=== PATIENT | female | born 1985 | race Caucasian/White ===

== ENCOUNTER 2024-08-04 16:04 | Emergency (ER) | payer OTHER ==
[2024-08-04 16:55] VITALS: TEMP 98.4
--- NOTE | 2024-08-04 17:35 | ED ---
Female Urogenital HPI - General Source: patient, RN notes reviewed Mode of arrival: ambulatory Limitations: no limitations - History of Present Illness MD Complaint: vaginal bleeding Onset/Timin -: days(s) <Sameer Lozano - Last Filed: 08/04/24 17:34> <Erika Burris - Last Filed: 08/04/24 23:31> - General Chief complaint: Vaginal Bleeding Stated complaint: 5wks preg/bleeding Time Seen by Provider: 08/04/24 16:18 - History of Present Illness Initial comments: Quick note: This is a 38-year-old female presenting with vaginal bleeding/spotting today. Patient states she is currently 5 weeks with a recent miscarriage last month on 06/30/2024. Endorses associated lower abdominal cramping. Denies/vomiting, dizziness, vaginal discharge, urinary symptoms. (Sameer Lozano) 38-year-old female who is G6, P4 currently approximately 5 weeks who presents emergency department with vaginal spotting. Patient reports to having a positive test last month however she had a miscarriage on June 30. She was given RhoGAM at that time due to her negative blood type. She did follow-up with [facility] and states that her beta hCG trended back to 0 and she was told it was okay to get again. Patient reports that 2 weeks ago she had a positive test. She has had some lower abdominal cramping, breast tenderness and fatigue. Today she started having some minor spotting. Denies any urinary complaints to include dysuria, hematuria or diffic ulty voiding. No flank pain. No nausea or vomiting. No other alleviating, precipitating or modifying factors (Erika Burris) - Related Data Allergies Allergy/AdvReac Type Severity Reaction Status Date / Time latex Allergy Unknown Verified 08/04/24 16:50 Review of Systems ROS Other: All systems not noted in ROS Statement are negative. <Sameer Loazno - Last Filed: 08/04/24 17:34> ROS Other: All systems not noted in ROS Statement are negative. <Erika Burris - Last Filed: 08/04/24 23:31> ROS Statement: Those systems with pertinent positive or pertinent negative responses have been documented in the HPI. Past Medical History Past Medical History: No Reported History Past Surgical History: Section Smoking Status: Former smoker Past Alcohol Use History: None Reported, Occasional Past Drug Use History: None Reported, Marijuana <Sameer Lozano - Last Filed: 08/04/24 17:34> General Exam Limitations: no limitations <Sameer Lozano - Last Filed: 08/04/24 17:34> General appearance: alert, in no apparent distress Head exam: Present: atraumatic, normocephalic, normal inspection Eye exam: Present: normal appearance, PERRL, EOMI. Absent: scleral icterus, conjunctival injection, periorbital swelling ENT exam: Present: normal exam, mucous membranes moist Neck exam: Present: normal inspection. Absent: tenderness, meningismus, lymphadenopathy Respiratory exam: Present: normal lung sounds bilaterally. Absent: respiratory distress, wheezes, rales, rhonchi, stridor Cardiovascular Exam: Present: regular rate, normal rhythm, normal heart sounds. Absent: systolic murmur, diastolic murmur, rubs, gallop, clicks GI/Abdominal exam: Present: soft, normal bowel sounds. Absent: distended, tenderness, guarding, rebound, rigid Extremities exam: Present: normal inspection, full ROM, normal capillary refill. Absent: tenderness, pedal edema, joint swelling, calf tenderness Back exam: Present: normal inspection Neurological exam: Present: alert, oriented X3, CN II-XII intact Psychiatric exam: Present: normal affect, normal mood Skin exam: Present: warm, dry, intact, normal color. Absent: rash <AnkituzairChelseaErika Sd - Last Filed: 08/04/24 23:31> - General Exam Comments Initial Comments: Visual Physical Exam Vital signs reviewed General: Well-appearing, nontoxic, no acute distress. Head: Normocephalic, atraumatic Eyes: PERRLA, EOMI ENT: Airway patent Chest: Nonlabored breathing Skin: No visual rash, normal skin tone Neuro: Alert and oriented 3 Musculoskeletal: No gross abnormalities (Sameer Lozano) Course Vital Signs 08/04/24 08/04/24 16:50 19:39 Temperature 98.4 F Pulse Rate 74 60 Respiratory 18 16 Rate Blood Pressure 144/75 120/75 O2 Sat by Pulse 99 98 Oximetry Medical Decision Making <Sameer Lozano - Last Filed: 08/04/24 17:34> - Lab Data Result diagrams: 08/04/24 18:05 08/04/24 18:05 <Erika Burris - Last Filed: 08/04/24 23:31> - Medical Decision Making I completed the quick note portion of this chart signed GURDEEP Bailey (Sameer Lozano) Was pt. sent in by a medical professional or institution (, LENA, RUFFLING MACHINE OPERATOR, urgent care, hospital, or intermediate...) When possible be specific @ -No Did you speak to anyone other than the patient for history (EMS, parent, family, police, friend...)? What history was obtained from this source @ -No Did you review nursing and triage notes (agree or disagree)? Why? @ -I reviewed and agree with nursing and triage notes Were old charts reviewed (outside hosp., previous admission, EMS record, old EKG, old radiological studies, urgent care reports/EKG's, intermediate records)? Report findings @ -No old charts were reviewed Differential Diagnosis (chest pain, altered mental status, abdominal pain women, abdominal pain men, vaginal bleeding, weakness, fever, dyspnea, syncope, headache, dizziness, GI bleed, back pain, seizure, CVA, palpatations, mental health, musculoskeletal)? @ -Differential Vaginal Bleeding: Spontaneous , threatened , molar , ectopic , bloody show, incompetent cervix, abruptioplacenta, placenta previa, uterine rupture, dysfunctional uterine bleeding, hemorrhage, uterine fibroids, this is not meant to be an all-inclusive list. EKG interpreted by me (3pts min.). @ -As above X-rays interpreted by me (1pt min.). @ -None done CT interpreted by me (1pt min.). @ -None done U/S interpreted by me (1pt. min.). @ -Yes and no identifiable intrauterine What testing was considered but not performed or refused? (CT, X-rays, U/S, labs)? Why? @ -None What meds were considered but not given or refused? Why? @ -None Did you discuss the management of the patient with other professionals (professionals i.e. , LENA, RUFFLING MACHINE OPERATOR, lab, RT, psych nurse, director social welfare, accountant certified public, teacher, truant officer, case management specialist)? Give summary @ -No Was smoking cessation discussed for >3mins.? @ -No Was critical care preformed (if so, how long)? @ -No Were there social determinants of health that impacted care today? How? (Homelessness, low income, unemployed, alcoholism, drug addiction, transportation, low edu. Level, literacy, decrease access to med. care, fpc, rehab)? @ -No Was there de-escalation of care discussed even if they declined (Discuss DNR or withdrawal of care, Hospice)? DNR status @ -No What co-morbidities impacted this encounter? (DM, HTN, Smoking, COPD, CAD, Cancer, CVA, ARF, Chemo, Hep., AIDS, mental health diagnosis, sleep apnea, morbid obesity)? @ -None Was patient admitted / discharged? Hospital course, mention meds given and route, prescriptions, significant lab abnormalities, going to OR and other pertinent info. @ -Upon arrival patient seen and evaluated in bed 33. Thorough history and physical exam was performed. IV was established. Laboratory studies are conducted. Ultrasound was performed. Patient's beta quant is 734. No identifiable intrauterine . This is discussed with the patient. Did discuss such diagnoses as threatened , incomplete , ectopic . At this time the patient must follow-up in 48 hours to have her beta quant redrawn. I did give her a prescription to have this done. The results will be sent to [facility]. She is also urged to download her [employer] to check on her results if she may be interested. She is informed that her beta quant was double in 48 hours. She will need a repeat ultrasound done in 1 to 2 weeks. Return to the emergency department for any new or worsening symptoms. RhoGAM will be good for 13 weeks and patient just had her RhoGAM 5 weeks ago. If the beta quant does decrease, patient will need to follow up with [facility] or her primary care doctor to make sure that it returns back to 0 before she can get again. Patient was aware of this. She was discharged home in stable condition Undiagnosed new problem with uncertain prognosis? @ -Yes Drug Therapy requiring intensive monitoring for toxicity (Heparin, Nitro, Ins ulin, Cardizem)? @ -No Were any procedures done? @ -No Diagnosis/symptom? @ -First trimester vaginal bleeding, of unknown location Acute, or Chronic, or Acute on Chronic? @ -Acute Uncomplicated (without systemic symptoms) or Complicated (systemic symptoms)? @ -Complicated Side effects of treatment? @ -No Exacerbation, Progression, or Severe Exacerbation? @ -No Poses a threat to life or bodily function? How? (Chest pain, [place], [place], pneumonia, PE, COPD, DKA, ARF, appy, cholecystitis, CVA, Diverticulitis, Homicidal, Suicidal, threat to staff... and all critical care pts) @ -Yes this patient needs to be followed closely to determine location of her (Erika Burris) - Lab Data Lab Results 08/04/24 08/04/24 08/04/24 Range/Units 17:32 18:05 18:05 WBC 8.3 (3.8-10.6) k/uL RBC 4.31 (3.80-5.40) m/uL Hgb 12.7 (11.4-16.0) gm/dL Hct 39.1 (34.0-46.0) % MCV 90.7 (80.0-100.0) fL MCH 29.5 (25.0-35.0) pg MCHC 32.5 (31.0-37.0) g/dL RDW 13.5 (11.5-15.5) % Plt Count 286 (150-450) k/uL MPV 7.8 Neutrophils % 61 % Lymphocytes % 30 % Monocytes % 5 % Eosinophils % 2 % Basophils % 1 % Neutrophils # 5.0 (1.3-7.7) k/uL Lymphocytes # 2.5 (1.0-4.8) k/uL Monocytes # 0.4 (0-1.0) k/uL Eosinophils # 0.1 (0-0.7) k/uL Basophils # 0.0 (0-0.2) k/uL PT 11.1 (10.0-12.5) sec INR 1.0 (<1.2) APTT 24.9 (22.0-30.0) sec Sodium (137-145) mmol/L Potassium (3.5-5.1) mmol/L Chloride (98-107) mmol/L Carbon Dioxide (22-30) mmol/L Anion Gap mmol/L BUN (7-17) mg/dL Creatinine (0.52-1.04) mg/dL Est GFR (CKD-EPI)AfAm (>60 ml/min/1.73 sqM) Est GFR (CKD-EPI)NonAf (>60 ml/min/1.73 sqM) Glucose (74-99) mg/dL Calcium (8.4-10.2) mg/dL Total Bilirubin (0.2-1.3) mg/dL AST (14-36) U/L ALT (4-34) U/L Alkaline Phosphatase (38-126) U/L Total Protein (6.3-8.2) g/dL Albumin (3.5-5.0) g/dL HCG, Quant mIU/mL Urine HCG, Qual Detected (Not Detectd) Blood Type Blood Type Recheck Bld Type Recheck Status 08/04/24 08/04/24 Range/Units 18:05 18:05 WBC (3.8-10.6) k/uL RBC (3.80-5.40) m/uL Hgb (11.4-16.0) gm/dL Hct (34.0-46.0) % MCV (80.0-100.0) fL MCH (25.0-35.0) pg MCHC (31.0-37.0) g/dL RDW (11.5-15.5) % Plt Count (150-450) k/uL MPV Neutrophils % % Lymphocytes % % Monocytes % % Eosinophils % % Basophils % % Neutrophils # (1.3-7.7) k/uL Lymphocytes # (1.0-4.8) k/uL Monocytes # (0-1.0) k/uL Eosinophils # (0-0.7) k/uL Basophils # (0-0.2) k/uL PT (10.0-12.5) sec INR (<1.2) APTT (22.0-30.0) sec Sodium 138 (137-145) mmol/L Potassium 4.2 (3.5-5.1) mmol/L Chloride 104 (98-107) mmol/L Carbon Dioxide 27 (22-30) mmol/L Anion Gap 7 mmol/L BUN 9 (7-17) mg/dL Creatinine 0.60 (0.52-1.04) mg/dL Est GFR (CKD-EPI)AfAm >90 (>60 ml/min/1.73 sqM) Est GFR (CKD-EPI)NonAf >90 (>60 ml/min/1.73 sqM) Glucose 92 (74-99) mg/dL Calcium 9.5 (8.4-10.2) mg/dL Total Bilirubin 0.6 (0.2-1.3) mg/dL AST 18 (14-36) U/L ALT 12 (4-34) U/L Alkaline Phosphatase 46 (38-126) U/L Total Protein 7.4 (6.3-8.2) g/dL Albumin 4.9 (3.5-5.0) g/dL HCG, Quant 734.8 mIU/mL Urine HCG, Qual (Not Detectd) Blood Type O Negative Blood Type Recheck No Previous Record Bld Type Recheck Status [facility] ONLY Disposition <Sameer Lozano - Last Filed: 08/04/24 17:34> Is patient prescribed a controlled substance at d/c from ED?: No Time of Disposition: 19:29 <Erika Burris - Last Filed: 08/04/24 23:31> Clinical Impression: Threatened miscarriage Disposition: HOME SELF-CARE Condition: Stable Instructions (If sedation given, give patient instructions): Threatened Miscarriage (ED) Additional Instructions: Please come to the outpatient lab on 08/06 for repeat lab draw. Your results will be sent to [facility]. We want the hormone level to double in the 48 hours. Your RhoGAM is up-to-date as it is good for 13 weeks. You will need a repeat ultrasound in 1 to 2 weeks. If the hormone level is falling, it must return entirely to 0 and you must have blood work to ensure that this happens. Return for any new or worsening symptoms Referrals: Rima Schwartz DO [Doctor of Osteopathic Medicine] - 1-2 days
[2024-08-04 18:27] LABS: Basophils % (A) 1 %; Eosinophils # (A) 0.1 k/uL (0-0.7); Eosinophils % (A) 2 %; HCT 39.1 % (34.0-46.0); HGB 12.7 gm/dL (11.4-16.0); Lymphocytes # (A) 2.5 k/uL (1.0-4.8); Lymphocytes % (A) 30 %; MCH 29.5 pg (25.0-35.0); MCHC 32.5 g/dL (31.0-37.0); MCV 90.7 fL (80.0-100.0); Mean Platelet Volume 7.8; Monocytes # (A) 0.4 k/uL (0-1.0); Monocytes % (A) 5 %; Neutrophils % (A) 61 %; Platelet Count 286 k/uL (150-450); RBC 4.31 m/uL (3.80-5.40); RDW 13.5 % (11.5-15.5); WBC 8.3 k/uL (3.8-10.6)
[2024-08-04 18:43] LABS: ALT 12 U/L (4-34); AST 18 U/L (14-36); African American GFR (CKD) >90 (>60 ml/min/1.73 sqM); Albumin 4.9 g/dL (3.5-5.0); Alkaline Phosphatase 46 U/L (38-126); Anion Gap 7 mmol/L; Blood Urea Nitrogen 9 mg/dL (7-17); Calcium 9.5 mg/dL (8.4-10.2); Carbon Dioxide 27 mmol/L (22-30); Chloride 104 mmol/L (98-107); Glucose 92 mg/dL (74-99); Non-African American GFR(CKD) >90 (>60 ml/min/1.73 sqM); Potassium 4.2 mmol/L (3.5-5.1); Sodium 138 mmol/L (137-145); Total Bilirubin 0.6 mg/dL (0.2-1.3); Total Protein 7.4 g/dL (6.3-8.2)
--- NOTE | 2024-08-04 18:44 | US ---
EXAMINATION TYPE: Transabdominal DATE OF EXAM: 08/04/2024 6:31 PM COMPARISON: NONE CLINICAL INDICATION: Female, 38 years old with history of Spotting, h/o miscarriage last month; Chemi kaur miscarriage 5 weeks ago. Unknown if patient is or not. No documentation of positive home test. Testing not done by ER staff. Blood tinged discharge that started today. Patient den ies any other signs, symptoms, or relevant history TECHNIQUE: Transvaginal (TV) and Transabdominal (TA) with grayscale and color Doppler imaging includi ng first trimester . FINDINGS: EXAM MEASUREMENTS: GESTATIONAL AGE / DATING Physician Established: Not yet established ( weeks/ days) EDC: Dates by LMP: (5 weeks/0 days) EDC: Dates by First Scan: No previous this is first scan ( weeks/ days) EDC: Dates by Current Scan for: No IUP seen at this time ( weeks/ days) EDC: MATERNAL ANATOMY Uterus: 8.6 x 6.6 x 6.8 cm Right Ovary: 4.1 x 2.5 x 2.2 cm Left Ovary: 3.3 x 1.7 x 1.0 cm Post CDS / Adnexa: WNL Presence of free fluid: No Presence of corpus luteal cyst: Unknown - not seen on right ovary, Limited visualization of left ovar y TA and non visualization of left ovary TV Presence of subchorionic bleed: GESTATION / SURVEY CRL: Not Seen ( weeks/ days) Gestational Sac morphology: Not Seen Gestational Sac MSD: Not Seen ( weeks/ days) Yolk Sac (normal less than 6mm): Not Seen Heart Rate: Not Seen bpm Rhythm: Not Seen IUP: Not Seen Nuchal Translucency 10-14wks (normal less than 3mm): Not Seen Age Appropriate Anatomy Cord Insertion: Not Seen Limbs: Not Seen Calvarium: Not Seen Date of LMP: 06/30/2024 Beta HcG (if available): Not done by ER Staff Endometrium appears complex and thickened = 3.3 cm IMPRESSION: 1. Thickened endometrial canal at 3.3 cm. No intrauterine gestation identified. Correlate with beta h CG. Ectopic is not excluded at this time [facility], Workstation: [facility], 08/04/2024 6:41 PM
[2024-08-04 18:56] LABS: Partial Thromboplastin Time 24.9 sec (22.0-30.0); Prothrombin Time 11.1 sec (10.0-12.5)
[2024-08-04 18:58] LABS: HCG,Quantitative Serum 734.8 mIU/mL
[2024-08-04 19:45] VITALS: BP 120/75; PULSE 60; RESP 16
== END 2024-08-04 19:39 | disposition home or self-care (01) ==
LOC: EC 16:04
DX: O20.0 Threatened abortion (principal); Z87.891 Personal history of nicotine dependence; Z91.040 Latex allergy status; Z3A.01 Less than 8 weeks gestation of pregnancy
CPT/HCPCS: 36415; 76801; 76817; 80053; 81025; 84702; 85025; 85610; 85730; 86900; 86901; 99284

== ENCOUNTER → 2024-08-06 | Outpatient (CLI) | payer OTHER | END | disposition home or self-care (01) | LOC: LABWHC1 13:11 | PROVIDERS: ATTEND Emergency Medicine | DX: O20.0 Threatened abortion (principal); Z3A.00 Weeks of gestation of pregnancy not specified | CPT/HCPCS: 36415; 84702 ==

== ENCOUNTER 2024-08-10 16:55 | Emergency (ER) | payer OTHER ==
[2024-08-10 17:05] VITALS: TEMP 98.6
--- NOTE | 2024-08-10 17:35 | ED ---
Female Urogenital HPI - General Chief complaint: Vaginal Bleeding Stated complaint: vaginal bleeding Time Seen by Provider: 08/10/24 17:33 Source: patient, RN notes reviewed, old records reviewed Mode of arrival: ambulatory Limitations: no limitations - History of Present Illness Initial comments: 38-year-old female presented to the ER for evaluation of vaginal spotting. Patient states that she is approximately A1 approximately 6 weeks gestation. Patient reports she had a miscarriage on June 30, 2024. She has Rh factor negative and received RhoGAM on that day. She was seen here on 08-04-2024 for vaginal spotting and diagnosed with a threatened . hCG at that time 734.8 repeat blood work completed on 1216 showing an hCG of 1316.0 patient reports she has continued to have vaginal spotting which is now brown in nature. She denies any abdominal pain or cramping. No other complaints. She is scheduled to follow-up with Dr. Laguna. No fevers or other complaints. - Related Data Allergies Allergy/AdvReac Type Severity Reaction Status Date / Time latex Allergy Unknown Verified 08/10/24 17:02 Review of Systems ROS Statement: Those systems with pertinent positive or pertinent negative responses have been documented in the HPI. ROS Other: All systems not noted in ROS Statement are negative. Past Medical History Past Medical History: No Reported History Past Surgical History: Section Smoking Status: Former smoker Past Alcohol Use History: None Reported, Occasional Past Drug Use History: None Reported, Marijuana General Exam Limitations: no limitations General appearance: alert, in no apparent distress Respiratory exam: Present: normal lung sounds bilaterally. Absent: respiratory distress, wheezes, rales, rhonchi, stridor Cardiovascular Exam: Present: regular rate, normal rhythm, normal heart sounds. Absent: systolic murmur, diastolic murmur, rubs, gallop, clicks GI/Abdominal exam: Present: soft, normal bowel sounds. Absent: distended, tenderness, guarding, rebound, rigid Neurological exam: Present: alert, oriented X3, CN II-XII intact Skin exam: Present: warm, dry, intact, normal color. Absent: rash Course Vital Signs 08/10/24 08/10/24 17:02 19:38 Temperature 98.6 F Pulse Rate 78 85 Respiratory 18 16 Rate Blood Pressure 118/71 121/77 O2 Sat by Pulse 99 100 Oximetry - Reevaluation(s) Reevaluation #1: 08/10/24 19:20 Case discussed with on-call ATTENDANT COIN OPERATED LAUNDRY, . Who advised on repeat hCG in 48 hours and outpatient follow-up this week with ATTENDANT COIN OPERATED LAUNDRY. Medical Decision Making - Medical Decision Making Was pt. sent in by a medical professional or institution (, LENA, VESSEL BUILDER, urgent care, hospital, or alf...) When possible be specific @ -No Did you speak to anyone other than the patient for history (EMS, parent, family, police, friend...)? What history was obtained from this source @ -No Did you review nursing and triage notes (agree or disagree)? Why? @ -I reviewed and agree with nursing and triage notes Were old charts reviewed (outside hosp., previous admission, EMS record, old EKG, old radiological studies, urgent care reports/EKG's, alf records)? Report findings @ -Yes, I reviewed ER visit and 08/04/24. HCG 734. No IUP on US. Blood type O-. I also reviewed repeat hCG and 08-06-2024. hCG 1316. Differential Diagnosis (chest pain, altered mental status, abdominal pain women, abdominal pain men, vaginal bleeding, weakness, fever, dyspnea, syncope, headache, dizziness, GI bleed, back pain, seizure, CVA, palpatations, mental health, musculoskeletal)? @ -Differential Vaginal Bleeding:Spontaneous , threatened , molar , ectopic , bloody show, incompetent cervix, abruptioplacenta, placenta previa, uterine rupture, dysfunctional uterine bleeding, hemorrhage, uterine fibroids, this is not meant to be an all-inclusive list. EKG interpreted by me (3pts min.). @ -None done X-rays interpreted by me (1pt min.). @ -None done CT interpreted by me (1pt min.). @ -None done U/S interpreted by me (1pt. min.). @ - ultrasound showing no IUP at this time. What testing was considered but not performed or refused? (CT, X-rays, U/S, labs)? Why? @ -None What meds were considered but not given or refused? Why? @ -None Did you discuss the management of the patient with other professionals (professionals i.e. , PA, VESSEL BUILDER, lab, RT, psych nurse, case management social worker, banking teacher, t eacher, records officer, dependency case manager)? Give summary @ -Yes, case discussed with on-call ATTENDANT COIN OPERATED LAUNDRY, Dr. Ambriz who advised on outpatient follow-up and serial hCGs in 48 hours. Was smoking cessation discussed for >3mins.? @ -No Was critical care preformed (if so, how long)? @ -No Were there social determinants of health that impacted care today? How? (Homelessness, low income, unemployed, alcoholism, drug addiction, transportation, low edu. Level, literacy, decrease access to med. care, fdc, r ehab)? @ -No Was there de-escalation of care discussed even if they declined (Discuss DNR or withdrawal of care, Hospice)? DNR status @ -No What co-morbidities impacted this encounter? (DM, HTN, Smoking, COPD, CAD, Cancer, CVA, ARF, Chemo, Hep., AIDS, mental health diagnosis, sleep apnea, morbid obesity)? @ - Was patient admitted / discharged? Hospital course, mention meds given and ro yvrose, prescriptions, significant lab abnormalities, going to OR and other pertinent info. @ -Discharge. 38-year-old female presented to the ER for evaluation of vaginal bleeding. Patient is approximately 6 weeks gestation. Upon examination, vitals signs stable. No signs of acute distress. No focal abdominal tenderness. Laboratory studies and transvaginal ultrasound repeated today. CBC remarkable for a stable hemoglobin of 12.5. CMP unremarkable. Serum hCG 2655.7. This has increased from 08-06-2024 at 1316. Transvaginal ultrasound completed today negative for IUP. Given no IUP seen and hCG level this was discussed with on-call ATTENDANT COIN OPERATED LAUNDRY, who advised on outpatient follow-up and serial hCGs completed in the next 48 hours. Prescription given. Blood type O-. Patient reports she received RhoGAM on 06-30-2024. RhoGAM is not indicated at this time. Strict return parameters discussed. Patient discharged in stable condition with follow-up to ATTENDANT COIN OPERATED LAUNDRY. Patient verbally expressed understanding and agreement with care plan. Case discussed with ED attending, Dr. Bruris. Undiagnosed new problem with uncertain prognosis? @ -No Drug Therapy requiring intensive monitoring for toxicity (Heparin, Nitro, Insulin, Cardizem)? @ -No Were any procedures done? @ -No Diagnosis/symptom? @ -Threatened Acute, or Chronic, or Acute on Chronic? @ -Acute Uncomplicated (without systemic symptoms) or Complicated (systemic symptoms)? @ -Uncomplicated Side effects of treatment? @ -No Exacerbation, Progression, or Severe Exacerbation? @ -No Poses a threat to life or bodily function? How? (Chest pain, [place], [place], pneumonia, PE, COPD, DKA, ARF, appy, cholecystitis, CVA, Diverticulitis, Homicidal, Suicidal, threat to staff... and all critical care pts) @ -No - Lab Data Result diagrams: 08/10/24 17:29 08/10/24 17:29 Lab Results 08/10/24 08/10/24 08/10/24 Range/Units 17:29 17:29 18:25 WBC 9.1 (3.8-10.6) k/uL RBC 4.04 (3.80-5.40) m/uL Hgb 12.5 (11.4-16.0) gm/dL Hct 37.3 (34.0-46.0) % MCV 92.1 (80.0-100.0) fL MCH 30.9 (25.0-35.0) pg MCHC 33.5 (31.0-37.0) g/dL RDW 13.8 (11.5-15.5) % Plt Count 270 (150-450) k/uL MPV 7.4 Neutrophils % 60 % Lymphocytes % 32 % Monocytes % 4 % Eosinophils % 2 % Basophils % 0 % Neutrophils # 5.5 (1.3-7.7) k/uL Lymphocytes # 2.9 (1.0-4.8) k/uL Monocytes # 0.4 (0-1.0) k/uL Eosinophils # 0.2 (0-0.7) k/uL Basophils # 0.0 (0-0.2) k/uL Sodium 135 L (137-145) mmol/L Potassium 4.3 (3.5-5.1) mmol/L Chloride 105 (98-107) mmol/L Carbon Dioxide 22 (22-30) mmol/L Anion Gap 8 mmol/L BUN 13 (7-17) mg/dL Creatinine 0.62 (0.52-1.04) mg/dL Est GFR (CKD-EPI)AfAm >90 (>60 ml/min/1.73 sqM) Est GFR (CKD-EPI)NonAf >90 (>60 ml/min/1.73 sqM) Glucose 89 (74-99) mg/dL Calcium 9.6 (8.4-10.2) mg/dL Total Bilirubin 0.5 (0.2-1.3) mg/dL AST 19 (14-36) U/L ALT 12 (4-34) U/L Alkaline Phosphatase 41 (38-126) U/L Total Protein 7.4 (6.3-8.2) g/dL Albumin 4.8 (3.5-5.0) g/dL HCG, Quant 2655.7 mIU/mL Urine Color Light Yellow Urine Appearance Clear (Clear) Urine pH 5.5 (5.0-8.0) Ur Specific [place] 1.018 (1.001-1.035) Urine Protein Negative (Negative) Urine Glucose (UA) Negative (Negative) Urine Ketones Negative (Negative) Urine Blood Moderate H (Negative) Urine Nitrite Negative (Negative) Urine Bilirubin Negative (Negative) Urine Urobilinogen <2.0 (<2.0) mg/dL Ur Leukocyte Esterase Negative (Negative) Urine RBC 1 (0-5) /hpf Urine WBC 4 (0-5) /hpf Ur Squamous Epith Cells 7 H (0-4) /hpf Urine Bacteria Rare H (None) /hpf - Radiology Data Radiology results: report reviewed, image reviewed Disposition Clinical Impression: Threatened miscarriage Disposition: HOME SELF-CARE Condition: Stable Instructions (If sedation given, give patient instructions): Threatened Miscarriage (ED) Additional Instructions: Have repeat blood work drawn in 48 hours. Follow-up with Dr. Laguna in office this week. Return to the ER for any new or worsening concerns. Is patient prescribed a controlled substance at d/c from ED?: No Referrals: Krystian Nice DO [Primary Care Provider] - 1-2 days Adrienne Laguna MD [STAFF PHYSICIAN] - 1-2 days Time of Disposition: 19:29
[2024-08-10 17:39] LABS: Basophils % (A) 0 %; Eosinophils # (A) 0.2 k/uL (0-0.7); Eosinophils % (A) 2 %; HCT 37.3 % (34.0-46.0); HGB 12.5 gm/dL (11.4-16.0); Lymphocytes # (A) 2.9 k/uL (1.0-4.8); Lymphocytes % (A) 32 %; MCH 30.9 pg (25.0-35.0); MCHC 33.5 g/dL (31.0-37.0); MCV 92.1 fL (80.0-100.0); Mean Platelet Volume 7.4; Monocytes # (A) 0.4 k/uL (0-1.0); Monocytes % (A) 4 %; Neutrophils # (A) 5.5 k/uL (1.3-7.7); Neutrophils % (A) 60 %; Platelet Count 270 k/uL (150-450); RBC 4.04 m/uL (3.80-5.40); RDW 13.8 % (11.5-15.5); WBC 9.1 k/uL (3.8-10.6)
[2024-08-10 18:19] LABS: ALT 12 U/L (4-34); AST 19 U/L (14-36); African American GFR (CKD) >90 (>60 ml/min/1.73 sqM); Albumin 4.8 g/dL (3.5-5.0); Alkaline Phosphatase 41 U/L (38-126); Anion Gap 8 mmol/L; Blood Urea Nitrogen 13 mg/dL (7-17); Calcium 9.6 mg/dL (8.4-10.2); Carbon Dioxide 22 mmol/L (22-30); Chloride 105 mmol/L (98-107); Glucose 89 mg/dL (74-99); Non-African American GFR(CKD) >90 (>60 ml/min/1.73 sqM); Potassium 4.3 mmol/L (3.5-5.1); Sodium 135 mmol/L (137-145); Total Bilirubin 0.5 mg/dL (0.2-1.3); Total Protein 7.4 g/dL (6.3-8.2)
[2024-08-10 18:35] LABS: Appearance,Urine Clear (Clear); Bacteria,Urine Rare /hpf; Bilirubin,Urine Negative (Negative); Blood,Urine Moderate (Negative); Color,Urine Light Yellow; Glucose,Urine (UA) Negative (Negative); Ketones,Urine Negative (Negative); Leukocyte Esterase,Urine Negative (Negative); Nitrite,Urine Negative (Negative); PH, Urine 5.5 (5.0-8.0); Protein,Urine Negative (Negative); RBC,Urine 1 /hpf (0-5); Specific Gravity,Urine 1.018 (1.001-1.035); Squamous Epithelial Cell,Urine 7 /hpf (0-4); Urobilinogen,Urine <2.0 mg/dL (<2.0); WBC,Urine 4 /hpf (0-5)
[2024-08-10 18:36] LABS: HCG,Quantitative Serum 2655.7 mIU/mL
--- NOTE | 2024-08-10 18:56 | US ---
EXAMINATION TYPE: Transabdominal DATE OF EXAM: 08/10/2024 6:46 PM COMPARISON: Same exam 08-04-2024 CLINICAL INDICATION: Female, 38 years old with history of threatened ; Spotting TECHNIQUE: Transabdominal (TA) FINDINGS: EXAM MEASUREMENTS: GESTATIONAL AGE / DATING Physician Established: Not yet established Dates by LMP: Patient unsure Dates by First Scan: No IUP seen on first exam Dates by Current Scan for: No IUP seen at this time MATERNAL ANATOMY Uterus: 9.2 x 4.5 x 6.4cm, mildly thickened endometrium Right Ovary: 3.1 x 1.8 x 2.0cm Left Ovary: 2.3 x 1.1 x 1.7cm Post CDS / Adnexa: wnl Presence of free fluid: no Presence of corpus luteal cyst: no Presence of subchorionic bleed: no GESTATION / SURVEY IUP: No IUP seen at this time Date of LMP: Patient unsure Beta HcG (if available): Not available at this time IMPRESSION: 1. No evidence of intrauterine gestational sac, correlate with B-hCG. If positive, this could represe nt early , ectopic or spontaneous . Follow up pelvic ultrasound in 5-7 day s and serial beta hCG studies are recommended. [facility], , 08/10/2024 6:54 PM
[2024-08-10 19:39] VITALS: BP 121/77; PULSE 85; RESP 16
== END 2024-08-10 19:39 | disposition home or self-care (01) ==
LOC: EC 16:55
DX: O20.0 Threatened abortion (principal); Z87.891 Personal history of nicotine dependence; Z91.040 Latex allergy status; Z3A.01 Less than 8 weeks gestation of pregnancy
CPT/HCPCS: 36415; 76801; 80053; 81001; 84702; 85025; 99284

== ENCOUNTER 2024-08-11 14:09 | Emergency (ER) | payer OTHER ==
[2024-08-11 14:16] VITALS: TEMP 98.7
--- NOTE | 2024-08-11 14:35 | ED ---
General Adult HPI - General Chief complaint: Vaginal Bleeding Stated complaint: vaginal bleeding/6 wks Time Seen by Provider: 08/11/24 14:27 Source: patient Mode of arrival: ambulatory Limitations: no limitations - History of Present Illness Initial comments: Dictation was produced using [employer] dictation software. please excuse any grammatical, word or spelling errors. Chief Complaint: 38-year-old female with vaginal bleeding History of Present Illness: Patient 38-year-old female Carissa presents to the emergency department with vaginal bleeding. This is her sixth . She has 4 children who are alive. She had 1 miscarriage in June. She is allegedly close to around 6 weeks . She has not followed with [facility]. This is her fourth visit here regarding issues for this . Yesterday she had an ultrasound that did not show any IUP. She was told to return to emergency department if she had any bleeding. Patient states that there was some spotting however when she went to wipe there was some blood on the toilet paper. She does have some 1 out of 10 what she reports as dull ache to the pelvis. Denies any fever or night chills. Denies any lightheadedness. The ROS documented in this emergency department record has been reviewed and confirmed by me. Those systems with pertinent positive or negative responses have been documented in the HPI. All other systems are other negative and/or no ncontributory. - Related Data Allergies Allergy/AdvReac Type Severity Reaction Status Date / Time latex Allergy Unknown Verified 08/11/24 14:12 Review of Systems ROS Statement: Those systems with pertinent positive or pertinent negative responses have been documented in the HPI. ROS Other: All systems not noted in ROS Statement are negative. Past Medical History Past Medical History: No Reported History Past Surgical History: Section Smoking Status: Former smoker Past Alcohol Use History: None Reported, Occasional Past Drug Use History: None Reported, Marijuana General Exam - General Exam Comments Initial Comments: PHYSICAL EXAM: General Impression: Alert and oriented x3, not in acute distress HEENT: Normocephalic atraumatic, extra-ocular movements intact, pupils equal and reactive to light bilaterally, mucous membranes moist. Cardiovascular: Heart regular rate and rhythm Chest: Able to complete full sentences, no retractions, no tachypnea Abdomen: abdomen soft, non-tender, non-distended, no organomegaly Musculoskeletal: Pulses present and equal in all extremities, no peripheral edema Motor: no focal deficits noted Neurological: CN II-XII grossly intact, no focal motor or sensory deficits noted Skin: Intact with no visualized rashes Psych: Normal affect and mood Limitations: no limitations Course Vital Signs 08/11/24 14:12 Temperature 98.7 F Pulse Rate 77 Respiratory 18 Rate Blood Pressure 106/72 O2 Sat by Pulse 97 Oximetry - Reevaluation(s) Reevaluation #1: 08/11/24 15:[address] Lonogria regarding patient's clinical presentation including beta quant levels and recent ultrasounds. Dr. Rivka Henderson states patient is stable for discharge recommends that patient follow-up in his office. States that she does not have any established care with [facility] in [facility]. Patient is told that her clinical presentation may represent ectopic versus miscarriage versus pelvic cancer. Patient's reevaluated bedside at 3:30 PM found to be stable to condition. Patient well-appearing in no acute distress. Medical Decision Making - Medical Decision Making Was pt. sent in by a medical professional or institution (, PA, FINANCIAL COACH, urgent care, hospital, or correction...) When possible be specific @ -No Did you speak to anyone other than the patient for history (EMS, parent, family, police, friend...)? What history was obtained from this source @ -No Did you review nursing and triage notes (agree or disagree)? Why? @ -I reviewed and agree with nursing and triage notes Were old charts reviewed (outside hosp., previous admission, EMS record, old EKG, old radiological studies, urgent care reports/EKG's, correction records)? Report findings @ -No old charts were reviewed Differential Diagnosis (chest pain, altered mental status, abdominal pain women, abdominal pain men, vaginal bleeding, musculoskeletal, weakness, fever, dyspnea, syncope, headache, dizziness, GI bleed, back pain, seizure, CVA, palpatations, mental health)? @ -Differential Vaginal Bleeding: Spontaneous , threatened , molar , ectopic , bloody show, incompetent cervix, abruptioplacenta, placenta previa, uterine rupture, dysfunctional uterine bleeding, hemorrhage, uterine fibroids, this is not meant to be an all-inclusive list. EKG interpreted by me (3pts min.). @ -None done X-rays interpreted by me (1pt min.). @ -None done CT interpreted by me (1pt min.). @ -None done U/S interpreted by me (1pt. min.). @ -None done What testing was considered but not performed or refused? (CT, X-rays, U/S, labs)? Why? @ -None What meds were considered but not given or refused? Why? @ -None Was smoking cessation discussed for >3mins.? @ -No Were there social determinants of health that impacted care today? How? (Homelessness, low income, unemployed, alcoholism, drug addiction, transportation, low edu. Level, literacy, decrease access to med. care, senior living, rehab)? @ -No Was there de-escalation of care discussed even if they declined (Discuss DNR or withdrawal of care, Hospice)? DNR status @ -No What co-morbidities impacted this encounter? (DM, HTN, Smoking, COPD, CAD, Cancer, CVA, ARF, Chemo, Hep., AIDS, mental health diagnosis, sleep apnea, morbid obesity)? @ -None Was patient admitted / discharged? Hospital course, mention meds given and route, prescriptions, significant lab abnormalities, going to OR and other pertinent info. @ -38-year-old well-appearing female presents with vaginal bleeding. She is allegedly 6 weeks . Vital signs are stable. Patient well-appearing at this time. Pelvic exam refused. Laboratory evaluation obtained. Labs unremarkable. Beta quant is 3317 which is slowly increasing from yesterday and has been trending upwards for the last week. Case was discussed in detail with Dr. Longoria as described above. Patient given return precautions otherwise she is told to call to make an appointment with Dr. Longoria tomorrow. Did you discuss the management of the patient with other professionals (professionals i.e. Dr., PA, FINANCIAL COACH, lab, RT, psych nurse, social work nurse, support associate, teacher, guest relations officer, case specialist)? Give summary @ -No Was critical care preformed (if so, how long)? @ -No Undiagnosed new problem with uncertain prognosis? @ -No Drug Therapy requiring intensive monitoring for toxicity (Heparin, Nitro, Insulin, Cardizem)? @ -No Were any procedures done? @ -No Diagnosis/symptom? Acute, or Chronic, or Acute on Chronic? Uncomplicated (without systemic symptoms) or Complicated (systemic symptoms)? @ -Vaginal bleeding during Side effects of treatment? @ -No Exacerbation, Progression, or Severe Exacerbation? @ -No Poses a threat to life or bodily function? How? (Chest pain, USA, ND, pneumonia, PE, COPD, DKA, ARF, appy, cholecystitis, CVA, Diverticulitis, Homicidal, Suicidal, threat to staff... and all critical care pts) @ -yes - Lab Data Result diagrams: 08/11/24 14:39 08/11/24 14:39 Lab Results 08/11/24 08/11/24 Range/Units 14:39 14:39 WBC 6.9 (3.8-10.6) k/uL RBC 4.54 (3.80-5.40) m/uL Hgb 13.3 (11.4-16.0) gm/dL Hct 40.8 (34.0-46.0) % MCV 90.0 (80.0-100.0) fL MCH 29.3 (25.0-35.0) pg MCHC 32.6 (31.0-37.0) g/dL RDW 14.0 (11.5-15.5) % Plt Count 287 (150-450) k/uL MPV 7.9 Neutrophils % 64 % Lymphocytes % 25 % Monocytes % 7 % Eosinophils % 2 % Basophils % 0 % Neutrophils # 4.4 (1.3-7.7) k/uL Lymphocytes # 1.7 (1.0-4.8) k/uL Monocytes # 0.5 (0-1.0) k/uL Eosinophils # 0.1 (0-0.7) k/uL Basophils # 0.0 (0-0.2) k/uL Sodium 139 (137-145) mmol/L Potassium 4.2 (3.5-5.1) mmol/L Chloride 104 (98-107) mmol/L Carbon Dioxide 25 (22-30) mmol/L Anion Gap 10 mmol/L BUN 8 (7-17) mg/dL Creatinine 0.65 (0.52-1.04) mg/dL Est GFR (CKD-EPI)AfAm >90 (>60 ml/min/1.73 sqM) Est GFR (CKD-EPI)NonAf >90 (>60 ml/min/1.73 sqM) Glucose 78 (74-99) mg/dL Calcium 9.7 (8.4-10.2) mg/dL Total Bilirubin 1.0 (0.2-1.3) mg/dL AST 17 (14-36) U/L ALT 14 (4-34) U/L Alkaline Phosphatase 40 (38-126) U/L Total Protein 7.5 (6.3-8.2) g/dL Albumin 5.0 (3.5-5.0) g/dL HCG, Quant 3317.7 mIU/mL Disposition Clinical Impression: Vaginal bleeding Disposition: HOME SELF-CARE Condition: Fair Instructions (If sedation given, give patient instructions): Ectopic (DC) Additional Instructions: Call to make an appoint with Dr. Longoria tomorrow Is patient prescribed a controlled substance at d/c from ED?: No Referrals: Issa Longoria MD [STAFF PHYSICIAN] - 1-2 days Time of Disposition: 15:30
[2024-08-11 14:49] LABS: Basophils % (A) 0 %; Eosinophils # (A) 0.1 k/uL (0-0.7); Eosinophils % (A) 2 %; HCT 40.8 % (34.0-46.0); HGB 13.3 gm/dL (11.4-16.0); Lymphocytes # (A) 1.7 k/uL (1.0-4.8); Lymphocytes % (A) 25 %; MCH 29.3 pg (25.0-35.0); MCHC 32.6 g/dL (31.0-37.0); Mean Platelet Volume 7.9; Monocytes # (A) 0.5 k/uL (0-1.0); Monocytes % (A) 7 %; Neutrophils # (A) 4.4 k/uL (1.3-7.7); Neutrophils % (A) 64 %; Platelet Count 287 k/uL (150-450); RBC 4.54 m/uL (3.80-5.40); WBC 6.9 k/uL (3.8-10.6)
[2024-08-11 14:59] LABS: ALT 14 U/L (4-34); AST 17 U/L (14-36); African American GFR (CKD) >90 (>60 ml/min/1.73 sqM); Alkaline Phosphatase 40 U/L (38-126); Anion Gap 10 mmol/L; Blood Urea Nitrogen 8 mg/dL (7-17); Calcium 9.7 mg/dL (8.4-10.2); Carbon Dioxide 25 mmol/L (22-30); Chloride 104 mmol/L (98-107); Glucose 78 mg/dL (74-99); Non-African American GFR(CKD) >90 (>60 ml/min/1.73 sqM); Potassium 4.2 mmol/L (3.5-5.1); Sodium 139 mmol/L (137-145); Total Protein 7.5 g/dL (6.3-8.2)
[2024-08-11 15:15] LABS: HCG,Quantitative Serum 3317.7 mIU/mL
[2024-08-11 15:42] VITALS: BP 122/78; PULSE 71; RESP 16
== END 2024-08-11 15:42 | disposition home or self-care (01) ==
LOC: EC 14:09
DX: O20.9 Hemorrhage in early pregnancy, unspecified (principal); Z87.891 Personal history of nicotine dependence; Z91.040 Latex allergy status; Z3A.01 Less than 8 weeks gestation of pregnancy
CPT/HCPCS: 36415; 80053; 84702; 85025; 99284

== ENCOUNTER → 2024-08-15 | Outpatient (CLI) | payer OTHER | END | disposition home or self-care (01) | LOC: LABWHC1 11:50 | PROVIDERS: ATTEND Obstetrics & Gynecology | DX: O20.0 Threatened abortion (principal) | CPT/HCPCS: 36415; 84702 ==